=== PATIENT | female | born 1985 | race Caucasian/White ===

== ENCOUNTER 2018-05-10 11:26 | Emergency (ER) | payer MEDICAID ==
[~2018-05-10] VITALS: Ht 165.1 cm; Wt 110.2 kg
[2018-05-10 11:48] VITALS: Ht 165.1 cm; Wt 110.2 kg
[2018-05-10 13:06] LABS: BASOPHIL % 0.2 % (0-2); PLATELET COUNT 224 x10^3mcL (130-400)
[2018-05-10 13:13] LABS: CALCIUM 8.6 mg/dL (8.5-10.1); CARBON DIOXIDE 20.9 mmol/L (21-32); CHLORIDE SERUM 102 mmol/L (98-107); CREATININE SERUM 0.6 mg/dL (0.6-1.0); GFR1 > 60 mL/min; GLUCOSE SERUM 104 mg/dL (74-106); POTASSIUM SERUM 3.7 mmol/L (3.5-5.1); SODIUM SERUM 136 mmol/L (136-145)
[2018-05-10 13:19] LABS: ALBUMIN 3.8 g/dL (3.4-5.0); ALKALINE PHOSPHATASE 64 U/L (46-116); ALT/SGPT 58 U/L (14-59); AST/SGOT 30 U/L (15-37); BILIRUBIN TOTAL 0.2 mg/dL (0.20-1.00); LIPASE 96 IU/L (73-393); TOTAL PROTEIN, SERUM 7.4 g/dL (6.4-8.2)
[2018-05-10 13:59] VITALS: BP 125/76
== END 2018-05-10 14:15 | disposition home or self-care (01) ==
LOC: ED 11:26
PROVIDERS: Emergency Medicine
DX: R10.9 Unspecified abdominal pain (principal); R11.10 Vomiting, unspecified; R19.7 Diarrhea, unspecified; E11.9 Type 2 diabetes mellitus without complications
CPT/HCPCS: J1885; J2405; J7030

== ENCOUNTER 2018-05-11 15:14 | Inpatient (IN) | payer MEDICAID ==
[~2018-05-11] VITALS: Ht 165.1 cm; Wt 109.5 kg
[2018-05-11 16:12] LABS: BASOPHIL % 0.3 % (0-2); PLATELET COUNT 250 x10^3mcL (130-400); RED CELL DISTRIBUTION WIDTH 13.1 % (11.5-14.5)
[2018-05-11 16:29] LABS: CALCIUM 8.4 mg/dL (8.5-10.1); CARBON DIOXIDE 20.4 mmol/L (21-32); CHLORIDE SERUM 102 mmol/L (98-107); CREATININE SERUM 0.7 mg/dL (0.6-1.0); GFR1 > 60 mL/min; GLUCOSE SERUM 158 mg/dL (74-106); POTASSIUM SERUM 3.5 mmol/L (3.5-5.1); SODIUM SERUM 137 mmol/L (136-145)
[2018-05-11 16:33] LABS: ALKALINE PHOSPHATASE 72 U/L (46-116); ALT/SGPT 61 U/L (14-59); AST/SGOT 39 U/L (15-37); BILIRUBIN TOTAL 0.2 mg/dL (0.20-1.00); LIPASE 106 IU/L (73-393); TOTAL PROTEIN, SERUM 7.7 g/dL (6.4-8.2)
[2018-05-11 17:33] VITALS: BP 123/75
[2018-05-11 17:37] LABS: PHOSPHOROUS 3.2 mg/dL (2.5-4.9)
[2018-05-11 17:40] LABS: CHOLESTEROL/HDL RATIO 4.5
[2018-05-11 17:48] LABS: T3 TOTAL 1.27 ng/mL
[2018-05-11 17:58] LABS: FREE T4 1.03 ng/dL (0.76-1.46); FREE THYROXINE INDEX 3.1 ug/dL (1.4-4.5); T4(THYROXINE) 10.4 ug/dL (4.7-13.3)
[2018-05-11 19:26] LABS: microscopic required? NO
[2018-05-11 19:30] LABS: UA SPECIFIC GRAVITY >=1.030 (1.005-1.035); urine erythrocyte NEGATIVE (NEGATIVE)
[2018-05-11 19:42] LABS: AMPHETAMINE QUAL UR NONE DETECTED (See below)
[2018-05-11 21:09] VITALS: BP 117/64
[2018-05-12 05:28] VITALS: BP 122/73
[2018-05-12 06:00] LABS: BASOPHIL % 0.2 % (0-2); PLATELET COUNT 210 x10^3mcL (130-400)
[2018-05-12 06:24] LABS: CALCIUM 7.9 mg/dL (8.5-10.1); CARBON DIOXIDE 24.4 mmol/L (21-32); CHLORIDE SERUM 108 mmol/L (98-107); CREATININE SERUM 0.7 mg/dL (0.6-1.0); GFR1 > 60 mL/min; GLUCOSE SERUM 116 mg/dL (74-106); POTASSIUM SERUM 3.5 mmol/L (3.5-5.1); SODIUM SERUM 141 mmol/L (136-145)
[2018-05-12 08:45] VITALS: BP 130/81
[2018-05-12] MEDS ORDERED: FLA500 PO (14:36)
[2018-05-12] MEDS ORDERED: LEVAQUIN750 MG PO (14:39)
[2018-05-12] MEDS ORDERED: LOPERAMIDE HCL2 M1 PO (14:41)
[2018-05-12 16:08] VITALS: BP 130/81
== END 2018-05-12 16:30 | disposition home or self-care (01) | DRG 249 ==
LOC: ED 15:14 → MU 17:00
PROVIDERS: Emergency Medicine; Family Medicine
DX: K52.9 Noninfective gastroenteritis and colitis, unspecified (principal); E11.59 Type 2 diabetes mellitus with other circulatory complications; D68.69 Other thrombophilia; E11.65 Type 2 diabetes mellitus with hyperglycemia; E83.51 Hypocalcemia; K76.0 Fatty (change of) liver, not elsewhere classified; E86.0 Dehydration; E78.5 Hyperlipidemia, unspecified; R74.0 Nonspecific elevation of levels of transaminase and lactic acid dehydrogenase [LDH]; Z98.84 Bariatric surgery status
CPT/HCPCS: 83880; 84439; 87046; 87046-59; J2550; J3010; J7030; Q0092; Q0162; Q9967